=== PATIENT | male | born 1960 | race Caucasian/White ===

== ENCOUNTER → 2017-01-02 | Day surgery (SDC) | payer BC, OTHER ==
[2016-12-11 13:36] VITALS: BMI 31.0
--- NOTE | 2016-12-11 14:14 | PAT Medication Instructions ---
Service Date Dec 11, 2016. Current Home Medication List Budesonide/Formoterol Fumarate (Symbicort 80/4.5 Inhaler), 2 PUFFS INH BID Gabapentin (Neurontin), 300 MG PO TID Hydrocodon/Acetaminophen 10MG/300MG (Vicodin Hp (10MG/300MG)), 1 TAB PO QDAY PRN for Pain Morphine Cont Rel (Ms Contin), 15 MG PO Q12 PRN for Pain Omeprazole (Omeprazole), Unknown Dose PO QPM Medication Instructions For Your Scheduled Surgery - Take the following medications the morning of surgery with a sip of water: Budesonide/Formoterol Fumarate (Symbicort 80/4.5 Inhaler), 2 PUFFS INH BID Gabapentin (Neurontin), 300 MG PO TID Hydrocodon/Acetaminophen 10MG/300MG (Vicodin Hp (10MG/300MG)), 1 TAB PO QDAY PRN for Pain (okay to take up to 4 hours prior to surgery if needed) Morphine Cont Rel (Ms Contin), 15 MG PO Q12 PRN for Pain (okay to take up to 4 hours prior to surgery if needed) - Take the following medications as scheduled the night before surgery: Omeprazole (Omeprazole), Unknown Dose PO QPM Budesonide/Formoterol Fumarate (Symbicort 80/4.5 Inhaler), 2 PUFFS INH BID Gabapentin (Neurontin), 300 MG PO TID Hydrocodon/Acetaminophen 10MG/300MG (Vicodin Hp (10MG/300MG)), 1 TAB PO QDAY PRN for Pain Morphine Cont Rel (Ms Contin), 15 MG PO Q12 PRN for Pain If you have any questions please call us at [phone] (Annalee Delacruz PA-C) or [phone] or [phone]
[2016-12-11 15:34] LABS: BUN/CREATININE RATIO 16.3 (10-20); CALCIUM 9.1 mg/dl (8.5-10.1); CREATININE 0.94 mg/dl (0.60-1.40); POTASSIUM 4.1 mmol/L (3.5-5.1)
[2016-12-11 15:40] LABS: PROTHROMBIN TIME (PATIENT) 10.6 SECONDS (9.0-12.0)
[2016-12-12 13:34] LABS: BASO % 0.2 %; BASO ABS # 0.01 K/uL (0-0.2); COMPLETE YES; EOS % 6.9 %; HEMATOCRIT 42.1 % (42-52); IG% 1.3 %; LYMPH % 25.2 %; LYMPH ABS # 1.17 K/uL (1.2-3.4); MEAN CELL VOLUME 87.3 fL (80-100); MEAN CORPUSCULAR HEMOGLOBIN 29.3 pg (25-34); MEAN CORPUSCULAR HGB CONC 33.5 g/dl (32-36); MEAN PLATELET VOLUME 9.3 fL (7.4-10.4); MONO % 8.4 %; PLATELET COUNT 225 K/uL (130-400); RED BLOOD COUNT 4.82 M/uL (4.7-6.1); WHITE BLOOD COUNT 4.65 K/uL (4.8-10.8)
[~2017-01-02] VITALS: Ht 165.1 cm; Wt 86.2 kg
[~2017-01-02] MED LIST: BUPIVACAINE 0.5 % 5 MG/1 ML MPF 30ML VIAL ONE; CEFAZOLIN 2000 MG/60 ML D5W IV SCH; DEXAMETHASONE SOD INJ 4 MG/ML VIAL ONE; DiphenhydrAMINE HCL 50 MG/ML VIAL IV PRN; DiphenhydrAMINE HCL 50 MG/ML VIAL ONE; FENTANYL CITRATE INJ 50 MCG/1 ML 2 ML VIAL IV PRN; FENTANYL CITRATE INJ 50 MCG/1 ML 2 ML VIAL ONE; GABA-113 PO; HYDR-3763 PO; KETOROLAC TROMETHAMINE 30 MG/ML VIAL IV. PRN; LACTATED RINGER'S 1000ML 1,000 ML IV PRN; LACTATED RINGER'S 1000ML 1,000 ML IV SCH; LIDOCAINE HCL 2% 2 ML VIAL (20MG/ML) ONE; METOCLOPRAMIDE HCL INJ 5 MG/ML 2 ML VIAL ONE; MIDAZOLAM HCL 1 MG/ML 2ML VIAL ONE; MORP15TA19 PO; MoRPHine SULFATE 10 MG/ML CARP/VIAL IV PRN; OMEP20TA PO; ONDANSETRON INJ 2 MG/ML 2 ML VIAL ONE; PROPOFOL IV EMULSION 10 MG/ML 20 ML VIAL IV ONE; SCOPOLAMINE 1.5 MG TDSY TD ONE; SYMIN/8045 INH
[2017-01-02 05:34] VITALS: BP 148/80; PULSE 52; TEMP 36.6; O2SAT 98; Ht 165.1 cm; Wt 86.2 kg
--- NOTE | 2017-01-02 07:15 | History & Physical Bridge Note ---
H&P Re-Evaluation Bridge Note: I have examined the patient, reviewed the History & Physical and in the interval since the performance of the History & Physical I have noted the following changes of clinical significance: No changes noted The scrotal mass is on the left side and has been marked
--- NOTE | 2017-01-02 08:35 | Discharge Instructions-SurgCtr ---
Discharge Instructions Date of Service Jan 02, 2017. Visit Reason for Visit: Left Scrotal Mass Discharge Discharge Diagnosis / Problem: scrotal mass Discharge Goals Goal(s): Decrease discomfort, Improve function, Improve disease control, Learn about illness, Diagnostic testing, Therapeutic intervention Activity Recommendations Activity Limitations: per Instructions/Follow-up section (no driving for 1 week ) no shower for 24 hours limit activity to around the house next 48 hours except doctor visit ice 45 minutes on and 15 off call for excessive bleeding or swelling Anesthesia . Post Anesthesia Instructions: If you have had General Anesthesia or IV Sedation: * Do not drive today. * Resume driving when surgeon permits. * Do not make important decisions or sign legal documents today. * Call surgeon for: 1. Temperature elevations greater than 101 degrees F. 2. Uncontrollable pain. 3. Excessive bleeding. 4. Persistent nausea and vomiting. 5. Medication intolerance (nausea, vomiting or rash). * For nausea and vomiting use only clear liquids such as: tea, soda, bouillon until nausea subsides, then gradually increase diet as tolerated. * If you have any concerns or questions, call your surgeon's office. If physician is unavailable and it is an emergency, call 911 or go to the nearest emergency room. . Diet Recommendations Home Diet: resume previous diet Procedures Procedures Performed: Left scrotal exploration, excision of left cord lipoma Pending Studies Studies pending at discharge: no Medical Emergencies . Who to Call and When: Medical Emergencies: If at any time you feel your situation is an emergency, please call 911 immediately. . Non-Emergent Contact Non-Emergency issues call your: Urologist . . "Provider Documentation" section prepared by Joe Prakash. .
--- NOTE | 2017-01-02 08:37 | [facility] Post Operative Brief Note ---
Immediate Operative Summary Operative Date Jan 02, 2017. Pre-Operative Diagnosis Left scrotal mass Post-Operative Diagnosis Left scrotal lipoma Procedure(s) Performed Left scrotal exploration, excision of left cord lipoma Surgeon Dr. Joe Prakash [employer] Surgeon(s) Dr.Howard Frias Estimated Blood Loss 30ml Findings pathology did not perform frozen section because on gross exam they felt mas 98 % likely benign lipoma Specimens Frozen section #1. Scrotal mass (silk tie on cut end) Drains 1 quarter inch sterling Complication(s) None
--- NOTE | 2017-01-02 09:08 | Anesthesiology Progress Note ---
Anesthesia Post Op Note Date & Time Jan 02, 2017 at 09:07 Vital Signs Pain Intensity: 1 Vital Signs Past 12 Hours Date Time Temp Pulse Resp B/P Pulse Ox O2 Delivery O2 Flow Rate FiO2 01/02/17 09:00 52 16 123/78 99 Room Air 01/02/17 08:50 52 16 132/80 100 Room Air 01/02/17 08:40 54 16 133/79 100 Mask 10 01/02/17 08:30 36.2 57 16 140/91 100 Mask 10 01/02/17 05:34 36.6 52 18 148/80 98 Room Air Notes Mental Status: alert / awake / arousable, participated in evaluation Pt Amnestic to Procedure: Yes Nausea / Vomiting: adequately controlled Pain: adequately controlled Airway Patency, RR, SpO2: stable & adequate BP & HR: stable & adequate Hydration State: stable & adequate Anesthetic Complications: no major complications apparent Pt doing well.
[2017-01-02 09:20] VITALS: BP 126/75; PULSE 54; TEMP 36.8; O2SAT 96
[2017-01-02 09:50] VITALS: BP 118/61; PULSE 59; TEMP 37; O2SAT 96
[2017-01-02 10:20] VITALS: BP 112/63; PULSE 50; TEMP 37; O2SAT 97
--- NOTE | 2017-01-02 10:49 | OPERATIVE REPORT ---
DATE OF OPERATION: 01/02/2017 PREOPERATIVE DIAGNOSIS: Left scrotal mass. POSTOPERATIVE DIAGNOSIS: Same. PROCEDURE PERFORMED: Left scrotal exploration and removal of left scrotal mass. SURGEON: Dr. Joe Prakash. INDICATIONS: The patient is a 56-year-old male with a history of a slowly growing left scrotal mass. He was diagnosed initially by sonogram with a left inguinal hernia. He had a inguinal hernia repair laparoscopically out of town. There was no hernia that was seen. He did have some mesh placed near the cord for a "sports hernia". The patient was referred to a urologist subsequently who got a CAT scan. The CAT scan said again that the patient had a inguinal hernia with fat protruding through the ring. The patient was referred back to the general surgeon who said this is not the case. The patient came to me for a second opinion. I reviewed the CAT scan from the outside institution with radiology who agreed that there was a fatty mass in the scrotum that went up to the external ring and slightly into the canal. The patient said this was causing him discomfort. He also had some anxiety as to whether this could be a liposarcoma, which is exceedingly rare, but we elected to have this surgically removed. He also felt that it was causing him discomfort particularly while driving. DESCRIPTION OF THE PROCEDURE: The patient was taken to the operating room where general anesthesia was administered. He was placed in supine position, prepped and draped in the usual sterile fashion. After the scrotal skin was shaved a horizontal incision was made in the left hemiscrotum. This was extended down through the dartos muscle with electrocautery. The testicle and the mass were delivered, the mass was easily from the cord and it was on a stalk which was taken up to where the fat ended. There was a little bit of what appeared to be vascular stalk that was clamped and cut and tied off with two 0 silk ties. The mass was sent for frozen section. Pathology called and said that they were not even sure this was just sarcoma because of its appearance grossly. I did not feel that a frozen section was necessary. At this juncture, the sutures were cut. All bleeding areas were cauterized. A quarter inch Mell drain was placed in the inferior aspect of the scrotum on the left side. All bleeding points were cauterized. There was no evidence of any bleeding and wound was irrigated. The scrotum was closed with a running 3-0 chromic suture and the skin was closed with vertical mattress sutures of 3-0 chromic. The patient was then transferred to the recovery room in stable condition. I attest to the content of the Intraoperative Record and any orders documented therein. Any exceptio ns are noted below.
== END | disposition home or self-care (01) ==
LOC: C.ACU 05:05
PROVIDERS: ATTEND Urology
DX: N50.89 Other specified disorders of the male genital organs (principal); J45.909 Unspecified asthma, uncomplicated; J44.9 Chronic obstructive pulmonary disease, unspecified; G47.33 Obstructive sleep apnea (adult) (pediatric); Z90.89 Acquired absence of other organs; Z68.31 Body mass index [BMI] 31.0-31.9, adult; E66.9 Obesity, unspecified; Z87.891 Personal history of nicotine dependence; Z85.828 Personal history of other malignant neoplasm of skin